=== PATIENT | male | born 1985 | race Caucasian/White ===

== ENCOUNTER 2019-07-13 17:49 | Emergency (ER) | payer OTHER ==
[~2019-07-13] VITALS: Ht 180.3 cm; Wt 151.5 kg
[2019-07-13 18:09] VITALS: BP 115/71
[2019-07-13] MEDS ORDERED: IBUPROFEN 400 MG TABLET ONE (18:28)
[2019-07-13] MEDS ORDERED: IBUPROFEN 400 MG TABLET PO ONE (18:30)
== END 2019-07-13 18:50 | disposition home or self-care (01) ==
LOC: ER 17:49
DX: S09.8XXA Other specified injuries of head, initial encounter (principal); W22.8XXA Striking against or struck by other objects, initial encounter; Y93.89 Activity, other specified; Y92.89 Other specified places as the place of occurrence of the external cause; Y99.0 Civilian activity done for income or pay